=== PATIENT | male | born 1980 | race Two or more races ===

== ENCOUNTER → 2025-05-02 | Emergency (ER) | payer OTHER ==
[~2025-05-02] VITALS: Ht 167.6 cm; Wt 79.8 kg
[~2025-05-02] MED LIST: 0.9 % SODIUM CHLORIDE 1,000 ML IV STA; ONDANSETRON HCL 2 MG/ML VIAL IV STA; ONDANSETRON HCL 2 MG/ML VIAL ONE; [UNRECOGNIZED DRUG - OTHER]
[2025-05-02 21:32] VITALS: BP 89/58; O2SAT 98
== END | disposition home or self-care (01) ==
LOC: ER 20:52
DX: F12.129 Cannabis abuse with intoxication, unspecified (principal); R11.10 Vomiting, unspecified